=== PATIENT | female | born 1925 | race Caucasian/White ===

== ENCOUNTER 2016-08-06 03:50 | Inpatient (IN) | payer SELFPAY ==
[~2016-08-06] VITALS: Ht 167.6 cm; Wt 59.0 kg
--- NOTE | 2016-08-06 03:57 | NUR ---
PT BIB FAMILY, PLACED ON GURNEY AND BROUGHT INTO ROOM. PT CRYING OUT IN PAIN WITH MOVEMENT TO HER HIP/BACK PAIN S/P FALL EARLIER IN THE AFTERNOON. DR ESQUIVEL AT BEDSIDE. SONS AT BEDSIDE.
[2016-08-06 04:16] LABS: BASOPHIL % 0.4 % (0-2); PLATELET COUNT 253 x10^3mcL (130-400)
[2016-08-06 04:25] LABS: RED CELL DISTRIBUTION WIDTH 14.6 % (11.5-14.5)
[2016-08-06 04:27] LABS: CALCIUM 8.7 mg/dL (8.5-10.1); CARBON DIOXIDE 24.2 mmol/L (21-32); CHLORIDE SERUM 105 mmol/L (98-107); CREATININE SERUM 1.8 mg/dL (0.6-1.0); GLUCOSE SERUM 112 mg/dL (74-106); POTASSIUM SERUM 4.1 mmol/L (3.5-5.1); SODIUM SERUM 139 mmol/L (136-145)
--- NOTE | 2016-08-06 04:27 | NUR ---
XRAY AT BEDSIDE.
[2016-08-06 04:32] LABS: ALBUMIN 3.6 g/dL (3.4-5.0); ALKALINE PHOSPHATASE 56 U/L (46-116); ALT/SGPT 20 U/L (14-59); AST/SGOT 27 U/L (15-37); BILIRUBIN TOTAL 0.42 mg/dL (0.20-1.00); TOTAL PROTEIN, SERUM 7.1 g/dL (6.4-8.2)
--- NOTE | 2016-08-06 05:34 | NUR ---
REPORT GIVEN TO KP FIELDS.
[2016-08-06 05:54] LABS: RED BLOOD CELLS 2.86 M/mm3 (4.10-5.10)
[2016-08-06 06:04] VITALS: BP 128/54
[2016-08-06 06:04] LABS: CHOLESTEROL/HDL RATIO 4.5; MAGNESIUM 1.8 mg/dL (1.8-2.4); PHOSPHOROUS 3.5 mg/dL (2.5-4.9)
[2016-08-06 06:12] LABS: FREE T4 0.94 ng/dL (0.76-1.46); FREE THYROXINE INDEX 2.3 ug/dL (1.4-4.5); T4(THYROXINE) 6.5 ug/dL (4.7-13.3)
--- NOTE | 2016-08-06 06:12 | NUR ---
RECEIVED FROM ER, TRANSPORTED VIA [facility] [place]. AWAKE AND ALERT, ORIENTED X 4. SPEECH CLEAR AND APPROPRIATE. ACCOMPANIED BY HER SON. PT ADMITTED FOR LEFT HIP FRACTURE. SHE STATED SHE TRIPPED AND FELL AT HOME. SEVERE PAIN WHEN MOVED FROM [facility] [place] TO BED. DENIED HAVING PAIN WHEN AT REST OR NOT MOVED. CAPILLARY REFILL TO TOES < 3 SECS. NO OPEN SKIN BREAKDOWN NOTED, BUT UNABLE TO ASSESS BUTTOCKS OR BACK AT THIS TIME. PT REFUSED TO BE TURNED. SALINE LOCK TO RIGHT AC.
[2016-08-06 06:21] LABS: IRON 23 ug/dL (50-170); TOTAL IRON BINDING CAPACITY 235 ug/dL (250-450)
[2016-08-06 06:22] LABS: T3 TOTAL 0.96 ng/mL
--- NOTE | 2016-08-06 07:06 | NUR ---
ENDORSED TO NURSE JUAN C. PT ASLEEP, EASILY AWAKENED. STATED COMFORTABLE AT THIS TIME. ALSO ENDORSED PT'S SON SUKI REQUESTS TO SPEAK WITH ORTHOPEDIC SURGEON WHEN HE COMES.
--- NOTE | 2016-08-06 07:25 | NUR ---
RESTING IN BED, AROUSABLE TO LIGHT NOISE, ABLE TO VERBALIZE NEEDS WITH CLEAR AND COHERENT SPEECH, REPORTS HAVING A FALL "YESTERDAY AT 1300" LLE WITH PAIN 5/10, WORSE WITH MOVEMENT, NUMBNESS AND TINGLING FELT AT HER LEFT FOOT, NO SENSATION LOSE, ABLE TO WIGGLE TOES, CAP REFILL < 3SECONDS, PULSES ARE MODERATE AND PALPABLE, ON TELE #16 NSR ON MONITOR, DENIES ANY HEART RELATED PAIN OR DISCOMFORT, IV AT RAC INFUSING NS AT 100ML/HR, REORIENTED TO ROOM AND CALL LIGHT, WILL CONTINUE TO PROVIDE CARE AND ADMINISTER PAIN MED ORDERED.
--- NOTE | 2016-08-06 08:10 | NUR ---
DR GATICA AND DR SHELBY AT BEDSIDE TO PLACE BILL'S TRACTION, PT C/O LLE PAIN 09/21, PAIN IS IMPROVING AFTER DOSE OF MORPHINE, BUT VERY RELACTANT TO THE PROCEDURE, DR DENSON MADE AWARE AND WILL ORDER DILAUDED TO BE GIVEN BEFORE THE PROCEDURE.
[2016-08-06 11:06] VITALS: BP 128/54
[2016-08-06 11:07] VITALS: BP 103/43
--- NOTE | 2016-08-06 11:10 | NUR ---
ECHO COMPLETED REQUESTED FOR POSS PRE-OP IM AM
--- NOTE | 2016-08-06 11:34 | NUR ---
BUCKS TRACTION WITH 5LBS APPLIED BY DR DENSON, PT TOLERATED WITH MIN DISTRESS, C/O FEELING NAUSEUS, WILL ADMIN ANTIEMETIC ORDERED.
--- NOTE | 2016-08-06 12:44 | NUR ---
16Fr BETANCUR CATH PLACED, 675ML OF CLEAR YELLOW URINE OUT, DRAINING TO GRAVITY, PATIENT TOLERATED WITH MIN DISTRESS, CALL LIGHT WITHIN REACH, ASSISTED TO COMFORTABLE POSITION FOR LUNCH.
[2016-08-06 13:23] VITALS: BP 88/38
--- NOTE | 2016-08-06 13:34 | NUR ---
COMPOUND FINISHER REPORTS BP 88/37, ON RUE, UPON REASSESSMENT BP 88/38 MAP 53, HR 53, PATIENT IS AWAKE AND ALERT, C/O NAUSEUS AND "SLIGHTLY DIZZY", DR DENSON AT BEDSIDE TO EVAL, WILL F/U WITH NEW ORDERS.
--- NOTE | 2016-08-06 13:36 | NUR ---
250ML NS BOLUS STARTED, PT C/O HAVING PEPTIC ULCER, DR DENSON MADE AWARE.
[2016-08-06 18:16] VITALS: BP 96/45
--- NOTE | 2016-08-06 19:37 | NUR ---
SHIFT REASSESSMENT DONE.PATIENT ASLEEP,NOT DISTURBED,BREATHING EASY.PATIENT MAINLY HEBREW,NEEDS ANTICIPATED.O2 AT 2 LITERS.BUCKS TRACTION 5 LBS,LEFT EXT.NS AT 50 CC/ HOUR.IV SITE GOOD RAC.TELE 16 SR.HAD BM TODAY PER DAY SHIFT.SKIN INTACT.LLE EDEMA NOTED.HAS BETANCUR CATH PUT IN TODAY FROM PREVIOUS SHIFT.PAIN MED PRN.CALL LITE IN REACH FOR ASSISTANCE.
--- NOTE | 2016-08-06 19:38 | NUR ---
1630: BOLUS OF NS 500ML ORDERED AND ADMINISTERED FOR BP 83/35. 1730: BP IS NOW 95/48, PT DENIES ANY MALIK OR DIZZINESS, LLE PAIN 04/21.
--- NOTE | 2016-08-06 19:40 | NUR ---
SITTING UP IN BED, BUCKS TRACTION IN PLACE, PT ABLE TO TOLERATE DINNER, REPORTS PAIN AT 3/10, WORSE WITH MOVEMENT, WILL HAVE ORIF ON 08/07/[address] DILLARD, CONSENTS SIGNED, CHECK LIST TO BE COMPLETED, NO OTHER SIGNIFICANT CHANGES NOTED, CARE ENDORSED TO NIGHT NURSE. DAUGHTER JEFF PHONED, ALL QUESTIONS ANSWERED.
--- NOTE | 2016-08-06 20:59 | NUR ---
SON HERE TALKING TO DR SHELBY.HAS FX L HIP.SURGERY TOMORROW,CONSENT ALREADY SIGNED BY PATIENT FROM PREVIOUS SHIFT.QUESTIONS ANSWERED BY DR SHELBY,SON AT BEDSIDE.
[2016-08-06 22:15] VITALS: BP 80/50
--- NOTE | 2016-08-06 22:20 | NUR ---
BP 80/50 NO SYMPTOMS,DR SHELBY MADE AWARE.SAYS TO DO BOLUS 500 AT THIS TIME,PATIENT HAS NO CHF.BETANCUR INTACT.
--- NOTE | 2016-08-06 22:25 | NUR ---
500 BOLUS ON AT THIS TIME PER DR SHELBY.
--- NOTE | 2016-08-06 22:30 | NUR ---
DR GATICA AT BEDSIDE,TALKING TO PATIENT,CHECKING BP AT THIS TIME.PATIENT IS ON NORCO RTC FOR PAIN.
[2016-08-07] VITALS (10 sets, daily range): BP systolic 80–107; BP diastolic 30–50
[2016-08-07 00:04] LABS: microscopic required? YES; urine erythrocyte TRACE (NEGATIVE)
--- NOTE | 2016-08-07 00:41 | NUR ---
BP AT MIDNITE 80/43 MAP OF 53.CAHARGE NURSE AWARE.PATIENT HAS NO SYMPTOMS PRESENTED.DR GATICA AWARE.
[2016-08-07 00:42] LABS: AMPHETAMINE QUAL UR NONE DETECTED (NEG <=1000)
--- NOTE | 2016-08-07 00:43 | NUR ---
DR SHELYB AND DR GATICA AWARE.
--- NOTE | 2016-08-07 01:11 | NUR ---
NEW ORDER ROCEPHIN NOTED AND GIVEN,FOLLOWED WITH I LITER BOLUS FOR LOW BP.
--- NOTE | 2016-08-07 02:36 | NUR ---
1 LITER BOLUS CONSUMED,LATEST BP NOW 81/30 MAP OF 47.PATIENT HAS NO SYMPTOMS,EASILY AWAKENED.CHARGE NURSE AWARE.DR SHELBY AWARE AT THIS TIME.NS AT 50 CC/ HOUR RESUMED.
--- NOTE | 2016-08-07 02:45 | NUR ---
DR SHELBY DC [facility].NOW PRN.
--- NOTE | 2016-08-07 02:46 | NUR ---
DR SHELBY AT BEDSIDE,TALKING TO PATIENT,NO SYMPTOMS.ALSO DR GATICA AT BEDSIDE,CHECKING BP.PERIANESTHESIA RN USE,MAILY GREENLANDIC.
--- NOTE | 2016-08-07 02:58 | NUR ---
BP RECHECKED WITH SMALL CUFF 105/58 MAP OF 74.DR SHELBY AND DR GATICA DOUBLE CHECKED BP.
--- NOTE | 2016-08-07 03:21 | NUR ---
ITCHINESS NOTED,DEIRDRE ORDERED,STILL UNVERIFIED,SAYS SHE DID NOT HAVE A SHOWER YESTERDAY,ROCEPHIN WAS GIVEN EARLIER,AFSANEH THINKS IT FROM IT,NO SKIN REDNEE NOTED.
--- NOTE | 2016-08-07 03:23 | NUR ---
CHANO ARTEAGA.NOW NEW ATB,LAVINIA.
--- NOTE | 2016-08-07 06:07 | NUR ---
PATIENT BP REMAINS LOW 80/37 MAP 52.CHARGE NURSE AWARE.DR SHELBY MADE AWARE AT ONCE.
[2016-08-07 06:14] LABS: BASOPHIL % 0.6 % (0-2); PLATELET COUNT 158 x10^3mcL (130-400)
[2016-08-07 06:21] LABS: CALCIUM 7.5 mg/dL (8.5-10.1); CARBON DIOXIDE 22.4 mmol/L (21-32); CHLORIDE SERUM 110 mmol/L (98-107); CREATININE SERUM 1.5 mg/dL (0.6-1.0); GLUCOSE SERUM 84 mg/dL (74-106); MAGNESIUM 1.8 mg/dL (1.8-2.4); PHOSPHOROUS 5.1 mg/dL (2.5-4.9); POTASSIUM SERUM 4.2 mmol/L (3.5-5.1); SODIUM SERUM 142 mmol/L (136-145)
--- NOTE | 2016-08-07 06:26 | NUR ---
REPOSITIONED,CORRECT BODY ALIGNMENT MAINTAINED,BUCKS TRACTION L LEG.JUDY BATH REMINDED FILM PROCESSOR TO DO THIS AM.CHECKLIST ,CONSENT IN CHART.
--- NOTE | 2016-08-07 06:49 | NUR ---
LATEST HBG 6.6,HCT 20.DR SHELBY AWARE AT THIS TIME,WAS TALKING TO HUMA,CHARGE NURSE.PHILIPPE PACHECO THE IV.WILL FOLLOW UP ORDER.
--- NOTE | 2016-08-07 07:50 | NUR ---
RECEIVED AWAKE AND ALERT. NO ACUTE RESP. DISTRESS NOTED. BP LOW THIS AM 80/37. PT ASYMPTOMATIC. MD AWARE PER NOC SHIFT REPORT. IVF INFUSING TO KVO AND SITE CLEAR. CALL LIGHT WITHIN REACH, WILL CONTINUE W/PLAN OF CARE.
[2016-08-07 08:43] LABS: BILIRUBIN DIRECT 0.1 mg/dL (0.0-0.2); BILIRUBIN TOTAL 0.2 mg/dL (0.20-1.00)
[2016-08-07 08:44] LABS: ALBUMIN 2.4 g/dL (3.4-5.0); TOTAL PROTEIN, SERUM 5.2 g/dL (6.4-8.2)
--- NOTE | 2016-08-07 09:32 | NUR ---
BLOOD TRANSFUSION STARTED, 1ST UNIT PRBC STARTED AND INFUSING WELL.M T TOLERATING WELL, NO ACTIVE REACTION NOTED. NO CHNAGES IN VS. WILL CONTINUE TO MONITOR.
[2016-08-07 10:02] LABS: rbc morphology (normal/abnorm) ABNORMAL (NORMAL)
--- NOTE | 2016-08-07 11:57 | NUR ---
1ST UNIT PRBC COMPLETED, PT TOLERATED WELL NO ACTIVE REACTION NOTED. PT C/O LT HIP PAIN, MEDICATED WITH TORADOL IVP.WILL CONTINUE TO MONITOR.
--- NOTE | 2016-08-07 13:22 | NUR ---
PT LEFT TO O.R IN NO DISTRESS, SECOND UNIT OF PRBC INFUSING WELL, NO REACTION NOTED. FAMILY AT BEDSIDE.
--- NOTE | 2016-08-07 17:45 | NUR ---
PT BACK FROM OR AWAKE AND ALERT, IN NO ACUTE RESP. DISTRESS. VS WNL. INCISION SITE WITH DRESSING X2 INTACT. PT C/O MILD DISCOMFORT WHEN MOVING HER LEG. WILL MEDICATE INDICATED.
--- NOTE | 2016-08-07 19:08 | NUR ---
REMAINS IN NO DISTRESS. AWAKE AND ALERT. TOLERATED WELL WITH MEALS. NO C/O N/V AT THIS TIME. NO C/O PAIN. FAMILY AT BEDSIDE. NO ACTIVE REACTION TO BLOOD TRANSFUSION NOTED. CALL LIGHT WITHIN REACH. WILL BE ENDORSED TO INCOMING SHIFT.
--- NOTE | 2016-08-07 20:00 | NUR ---
RECEIVED PT RESTING IN BED AWAKE, ALERT ORIENTED X4. PT IS S/P ORIF TO LEFT HIP, SITE IS INTACT, NO DRAINAGE NOTED TO DRESSING. TELE MONITOR REMOVED, NO LONGER NEEDED, MEDSURG PT. LUNG SOUNDS CLEAR, LEFT SIDE SLIGHT CRACKLES NOTED AFTER BREATHING TREATMENT. LOG ROLL ONLY. IVF NS AT 10ML/HR. SHIFT ASSESSMENT COMPLETED. CALL LIGHT WITHIN REACH. WILL CONTINUE TO MONITOR CLOSELY.
--- NOTE | 2016-08-07 22:30 | NUR ---
ALL DUE MEDS GIVEN ORDERED. CALL LIGHT WITHIN REACH. PT RESTING IN BED NO DISTRESS NOTED. H/H COMPLETED, WNL. WILL CONTINUE TO MONITOR CLOSELY.
[2016-08-07 22:37] LABS: BASOPHIL % 0.6 % (0-2); PLATELET COUNT 155 x10^3mcL (130-400)
[2016-08-07 22:40] LABS: RED CELL DISTRIBUTION WIDTH 15.1 % (11.5-14.5)
--- NOTE | 2016-08-08 | NUR ---
PT C/O PAIN TO LEFT HIP, NORCO GIVEN ORDERED. ALL NEEDS TENDED TO. WILL CONTINUE TO MONITOR CLOSELY.
--- NOTE | 2016-08-08 04:30 | NUR ---
PT C/O PAIN, MEDICATED WITH NORCO ORDERED. IVF TKO. ALL NEEDS TENDED TO. WILL CONTINUE TO MONITOR CLOSELY.
[2016-08-08 05:26] VITALS: BP 102/46
--- NOTE | 2016-08-08 06:15 | NUR ---
ALL DUE MEDS GIVEN ORDERED. ANCEF INFUSING WELL AT THIS TIME. CALL LIGHT WTIHIN REACH. BED IS IN LOWEST POSITION. ALL NEEDS TENDED TO. WILL ENDORSE TO INCOMING SHIFT.
[2016-08-08 06:33] LABS: CALCIUM 7.6 mg/dL (8.5-10.1); CARBON DIOXIDE 22.9 mmol/L (21-32); CHLORIDE SERUM 109 mmol/L (98-107); CREATININE SERUM 1.5 mg/dL (0.6-1.0); GLUCOSE SERUM 89 mg/dL (74-106); MAGNESIUM 1.6 mg/dL (1.8-2.4); PHOSPHOROUS 4.5 mg/dL (2.5-4.9); POTASSIUM SERUM 5.2 mmol/L (3.5-5.1); SODIUM SERUM 140 mmol/L (136-145)
--- NOTE | 2016-08-08 08:00 | NUR ---
AWAKE,ALERT AND ORIENTED,VERY ANXIOUS REG. HER MEDICAL CONDITION ,S/P LEFT HIP ORIF W/ DRESSING CDI,ON ROUTINE PAIN MEDICATION GIVEN ORDERED. BETANCUR CTAH. PATENT AND DRAINING YELLOW COLOR URINE.NO ACUTE DISTRESS NOTED.ABLE TO TURN, LOG ROLL W/ ASSIST.MADE PT. COMFORTABLE IN BED. CONT. IV FLUIDS AND IV ANTIBIOTIC ORDERED.WILL CONT. PLAN OF CARE.
--- NOTE | 2016-08-08 08:45 | NUR ---
DR. NOONAN WAS HERE W/ OTHE MEDICAL STAFF MADE ROUNDS AND UPDATED PT. PLAN OF CARE.
--- NOTE | 2016-08-08 14:18 | NUR ---
PHYSICAL THERAPY DAILY NOTES CO-SIGN All documentation done by the Portable Machine Cutter for 08/08/16 has been reviewed. I agree with the documentation. Reviewed/Co-Signed by: Hailey Sequeira PT Documentation Done by:CHAD ELDER INSTITUTIONAL COOK PROGRESS TANYA.; CALLED Pt's SON (SUKI CRISTINA) CELL PHONE #, TO SCHEDULE ONGOING FAMILY TRAINING, SON WILL CHECK FROM HIS WORK WHEN HE IS AVAILABLE; SON TO CALL BACK P.T. DEPT.
[2016-08-08 18:15] VITALS: BP 130/58
--- NOTE | 2016-08-08 20:00 | NUR ---
PT A/A/O X4. DENIES DIZZINESS AND HEADACHE. BREATH SOUNDS CLEAR. BREATHING EVEN AND UNLABORED ON 2L NC. DENIES CHEST PAIN AND PRESSURE. BOWEL SOUNDS ACTIVE. NO C/O N/V AND ABD PAIN. DRESSING NOTED ON THE LEFT LOWER HIP EXTENDING TO THE LEFT THIGH C/D/I. IV INTACT ON THE LEFT FOREARM INFUSING WITH NS AT 10 ML/HR. IV HEPLOCK NOTED ON THE RIGHT FOREARM. MADE PT COMFORTABLE. PLACED CALL LIGHT WITH IN REACH. WILL CONTINUE TO MONITOR.
[2016-08-08 22:53] VITALS: BP 92/36
[2016-08-08 23:08] VITALS: BP 95/45
--- NOTE | 2016-08-08 23:10 | NUR ---
PATIENTS BLOOD PRESSURE PER OPERATIONS RESEARCH ANALYST WAS 92/36 MAP 56[address] PT [address]IC. DR. GATICA NOTIFIED. PER DR. GATICA WAS INSTRUCTED TO USE THE SMALLEST BP CUFF FOR THE PT. TOOK BP WITH SMALL CUFF, 95/[address] GATICA NOTIFIED. NO NEW ORDER GIVEN. WILL CONTINUE TO MONITOR.
--- NOTE | 2016-08-09 04:55 | NUR ---
PT REFUSED NORCO PO. DR. GATICA AWARE. WILL CONTINUE TO MONITOR.
--- NOTE | 2016-08-09 05:38 | NUR ---
PT RESTING WITH EYES CLOSED. EASILY AROUSABLE WITH VERBAL STIMULI. NO C/O PAIN THUS FAR. DRESSING ON THE LEFT LOWER HIP C/D/I. IV INTACT AND INFUSING ORDERED. MADE PT COMFORTABLE. WILL ENDORSE TO THE AM NURSE ACCORDINGLY.
[2016-08-09 06:13] VITALS: BP 133/67
--- NOTE | 2016-08-09 06:13 | NUR ---
PT TEMP 100.1. COOLING MEASURES IMPLEMENTED. GAVE PT ICE PACK FOR BOTH ARMPITS AND LEFT PT WITH ONE BLANKET. WILL CONTINUE TO MONITOR.
--- NOTE | 2016-08-09 06:54 | NUR ---
PT TEMP 99.5. COOLING MEASURES CONTINUED. WILL ENDORSE TO THE AM NURSE ACCORDINGLY.
--- NOTE | 2016-08-09 07:50 | NUR ---
RECEIVED PT IN BED A/A/OX4 FORGETFUL. DENIES MALIK. RESP EVEN AND UNLABORED WITH DIMINISHED BS BILAT. DENIES ANY SOB/CP/PRESSURE AT THIS TIME. NOTED WITH SOME SWELLING TO LLE. PT S/P ORIF LT HIP POD2, LIMITED ROM AND PAIN TO LLE. SX DRSG IN PLACE CDI. ABD SOFT, SLIGHTLY DISTENDED WITH HYPOATIVE BS X4. C/O MILD NAUSEA WILL MEDICATE ORDERED. BETANCUR CATH TO GRAVITY WITH YELLOW URINE. PT REFUSED TO TURN FOR ASSESSMENT OF BACK. PER NOC SHIFT INTACT. CALL LIGHT INREACH ASSIST WITH REPOSITIONING Q2HRS.
--- NOTE | 2016-08-09 07:52 | NUR ---
PT C/O NAUSEA MEDICATED WITH ZOFRAN IVP ORDERED.
[2016-08-09 08:39] LABS: BASOPHIL % 0.3 % (0-2); PLATELET COUNT 165 x10^3mcL (130-400)
[2016-08-09 08:52] LABS: RED CELL DISTRIBUTION WIDTH 14.6 % (11.5-14.5)
[2016-08-09 08:57] LABS: CARBON DIOXIDE 27.2 mmol/L (21-32); CHLORIDE SERUM 102 mmol/L (98-107); CREATININE SERUM 1.4 mg/dL (0.6-1.0); GLUCOSE SERUM 93 mg/dL (74-106); MAGNESIUM 2.1 mg/dL (1.8-2.4); PHOSPHOROUS 4.2 mg/dL (2.5-4.9); POTASSIUM SERUM 5.1 mmol/L (3.5-5.1); SODIUM SERUM 132 mmol/L (136-145)
[2016-08-09 09:56] VITALS: BP 133/67
[2016-08-09 09:58] VITALS: BP 122/49
--- NOTE | 2016-08-09 10:53 | NUR ---
PT C/O PAIN 07/22 MEDICATED WITH TORADOL IVP ORDERED. WILL CONT TO MONITOR.
--- NOTE | 2016-08-09 12:00 | NUR ---
PT PLACED ON LOW AIRLOSS MATRESS WHILE UP WITH PT PER NIECY SCALE. WILL CONT TO MONITOR.
--- NOTE | 2016-08-09 12:15 | NUR ---
PT C/O NAUSEA NOTED WITH MILD EMESIS MEDICATED WITH ZOFRAN IVP ORDERED. WILL CONT TO MONITOR.
[2016-08-09 13:44] VITALS: BP 99/50
--- NOTE | 2016-08-09 14:15 | NUR ---
DR. DENSON CALLED AND MADE AWARE PT REMAINS NAUSEOUS WITH SEVERAL EMESIS ABOUT 300ML YELLOW BILE, CLEAR VOMIT. MADE AWARE OF VS, 141/58, HR 74. STATED HE WILL ORDER BENDRYL IVP. WILL CONT TO MONITOR.
--- NOTE | 2016-08-09 14:20 | NUR ---
PT MADE AWARE OF NEW ORDER FOR BENADRYL TO HELP WITH NAUSEA, PT STATED SHE DID NOT WANT TO TAKE ANY OTEHR MEDICATIONS AT THIS TIME AND WANTED TO TRY TO JUST SLEEP IT OFF. WILL CONT TO MONITOR.
--- NOTE | 2016-08-09 15:25 | NUR ---
PT NOTES P.M. PATIENT SEEN IN THE AFTERNOON (1355) FOR P.T. TX. HOWEVER HELD TX D/T PATIENT NAUSEOUS. ADDITIONALLY, PER DIAMOND MAGANA PATIENT STATES "THAT SHE FEELS UPSIDE DOWN." DIAMOND MAGANA IS BY BEDSIDE & ASSISTING W/ PATIENT. RN ALSO STATED TO HOLD TX. WILL FOLLOW UP AT NEXT VISIT. PATIENT EDUCATED ON HEP & IMPORTANCE OF THERAPY. PRIMARY THERAPIST AWARE. PVE
--- NOTE | 2016-08-09 15:58 | NUR ---
PHYSICAL THERAPY DAILY NOTES CO-SIGN All documentation done by the Rv Technician for 08/09/16 has been reviewed. I agree with the documentation. I CONCUR WITH AM/FLASK FITTER NOTE; CONT PER TX PLAN Reviewed/Co-Signed by: Maryanne Dennis V PT Documentation Done by: CHAD ELDER FLASK FITTER
--- NOTE | 2016-08-09 16:10 | NUR ---
PT RESTING WITH EYES CLOSED, NO APPARENT DISTRESS, RESP EVEN AND UNLABORED. WILL CONT TO MONITOR.
[2016-08-09 17:55] VITALS: BP 133/55
--- NOTE | 2016-08-09 18:34 | NUR ---
PT RESTING COMFORTABLY AT THIS TIME EATING DINNER WITH SON AT BEDSIDE. SPOKE WITH SON REGARDING NEED FOR TRAINING WITH PT PART OF D/C PLAN. SON SUKI STATED HE WILL BE HERE AT 3PM TOMORROW TO WORK WITH PT. FILOMENA FROM CASE MANAGEMENT CALL SON AT THIS TIME, PHONE GIVEN TO SON TO SPEAK WITH FILOMENA. WILL CONT TO MONITOR.
--- NOTE | 2016-08-09 20:00 | NUR ---
PT A/A/O X4. DENIES DIZZINESS AND HEADACHE. BREATH SOUNDS CLEAR. BREATHING EVEN AND UNLABORED ON 1L NC WITH HUMIDIFIER. DENIES CHEST PAIN AND PRESSURE. BOWEL SOUNDS ACTIVE. NO C/O N/V AND ABD PAIN THUS FAR. DRESSING C/D/I ON THE LEFT LOWER HIP AND THIGH. ON BETANCUR CATH IN PLACE AND DRAINING TO GRAVITY WITH YELLOW URINE. IV HEPLOCK INTACT ON THE RIGHT FOREARM AND IV INFUSING WITH NS AT 10 ML/HR ON THE LEFT FOREARM. MADE PT COMFORTABLE. PLACED CALL LIGHT WITH IN REACH. WILL CONTINUE TO MONITOR.
[2016-08-09 21:30] VITALS: BP 125/52
--- NOTE | 2016-08-09 22:52 | NUR ---
PATIENTS BETANCUR CLAMP TO START BLADDER TRAINING. WILL CONTINUE TO MONITOR.
--- NOTE | 2016-08-10 03:05 | NUR ---
PT BETANCUR CATH UNCLAMPED. PT TOLERATED IT WELL. WILL CONTINUE TO MONITOR.
--- NOTE | 2016-08-10 05:12 | NUR ---
PT BETANCUR CATH REMOVED. PT TOLERATED IT WELL. IV INTACT AND INFUSING ORDERED. DRESSING ON THE LEFT LOWER HIP C/D/I. MADE PT COMFORTABLE. WILL ENDORSE TO THE AM NURSE ACCORDINGLY.
[2016-08-10 06:10] VITALS: BP 124/48
[2016-08-10 06:40] LABS: CALCIUM 8.3 mg/dL (8.5-10.1); CARBON DIOXIDE 27.3 mmol/L (21-32); CHLORIDE SERUM 101 mmol/L (98-107); CREATININE SERUM 1.3 mg/dL (0.6-1.0); GLUCOSE SERUM 84 mg/dL (74-106); MAGNESIUM 2.1 mg/dL (1.8-2.4); PHOSPHOROUS 4.3 mg/dL (2.5-4.9); POTASSIUM SERUM 4.6 mmol/L (3.5-5.1); SODIUM SERUM 133 mmol/L (136-145)
[2016-08-10 06:50] LABS: BASOPHIL % 0.6 % (0-2); PLATELET COUNT 173 x10^3mcL (130-400); RED CELL DISTRIBUTION WIDTH 14.5 % (11.5-14.5)
--- NOTE | 2016-08-10 07:40 | NUR ---
RECEIVED PT IN BED A/A/OX4 DENIES MALIK. RESP EVEN AND UNLABORED WITH SLIGHTLY DIMINISHED BASES. ON O2 AT 1L/MIN VIA NC, REFUSED RT PROTOCOL. DENIES ANY CP/PRESSURE AT THIS TIME. NSR ON TELE. NOTED WITH SWELLING TO LLE AT SX SITE. S/P ORIF TO LT HIP POD3. SX DRSG CDI. ABD SOFT, SLIGHTLY DISTENDED PT DENIES HAVING ANY BM YET, LAST BM /SUNDAY LAST WEEK. PT NOTED WITH PRESENT BS X4. C/O MILD NAUSEA. BETANCUR CATH D/C'D THIS AM PT YET TO VOID. PT WITH LIMITED ROM TO LLE, UP WITH PT. ON LOW AIRLOSS MATTRESS, SKIN INTACT, SOME ECCHYMOSIS TO BUE. CALL LIGHT IN REACH NEEDS ATTENDED.
--- NOTE | 2016-08-10 08:20 | NUR ---
DR. NOONAN AND MEDICAL TEAM AT BEDSIDE OF AM ROUNDS UPDATED ON PT'S CONDITION OVERNIGHT. MADE AWARE PT REMAINS NAUSEOUS AND HAS NOT HAD BM. MD INFORMED PT OF PLAN TO MAKE SOME CHANGES TO MEDICAITONS TO HELP WITH SIMPTOMS. PT AGREABLE WITH POC.
--- NOTE | 2016-08-10 08:40 | NUR ---
PT C/O NAUSEA MEDICATED WITH ZOFRAN IVP ORDERED WILL CONT TO MONITOR.
--- NOTE | 2016-08-10 09:10 | NUR ---
PT C/O DIZZINESS AND LIGHT HEADEDNESS, BELIEVE EFFECT OF ZOFRAN, REQUESTED MEDICATION NOT BE GIVEN ANYMORE. MESSAGE SENT VIA PAGE GATE TO DR. DENSON.
--- NOTE | 2016-08-10 09:30 | NUR ---
PT HAD FIRST POST F/C D/C VOID, ABOUT 200ML.
[2016-08-10 09:49] VITALS: BP 93/63
--- NOTE | 2016-08-10 11:00 | NUR ---
UNABLE TO GIVE MG CITRATE AT ORDERED TIME D/T C/O NAUSEA. PT ALLOW TO HAVE FLEET ENEMA GIVEN AT THIS TIME. CURRENTLY RETAINING IT. WILL CONT TO MONITOR.
--- NOTE | 2016-08-10 11:20 | NUR ---
PT HAD LARGE SOFT, BROWN BM AT THIS TIME, REPORTS STILL FEELING URGE TO HAVE BM PROVIDED WITH LOW BEDPAN. CALL LIGHT IN REACH NEEDS ATTENDED TO.
--- NOTE | 2016-08-10 12:15 | NUR ---
DR. DENSON CALL AND MADE AWARE PT C/O CHEST PAIN/SOB WHILE WORKING WITH PT. PT HAD O2 SAT DROP TO 85%, PT WAS NOTED TO HOLD BREATH AND STRAIN WHILE ATTEMPTING TO STAND AND USE BATHROOM. PT WAS PLACED ON O2 AT 2L/MIN VIA NC BY PT WITH O2SAT UP TO 98%. PT REPORT PAIN TO CHEST WITH TOUCH AND DEEP BREATHING. VSS, PER TELE MONITOR NO CHANGE IN RHYTHM WITH IN LAST [address] DENSON MADE AWARE AND CAME TO BEDSIDE TO EVAL PT. EVALUATED PT AND INSTRUCTED PT TO RESUME BREATHING TX AND TAKE LAXITIVES TO HELP RELIEVE NAUSEA THAT MAY BE CAUSE BY CONSTIPATION. PT AGREABLE TO ALL OF PHYSICIAN INSTRUCTIONS AND AGREED TO TAKE MAG CITRATE PREVIOUSLY REFUSED. PHARMACY CALL TO REACTIVATE MEDICATION. WILL CONT TO MONITOR.
--- NOTE | 2016-08-10 13:30 | NUR ---
PERFORMED WOUND CARE TO LT HIP SX SITE ORDERED. NOTED SMALL OPEN BLISTER TO LT HIP POSTERIOR AREA AFTER REMOVING SX TAPE. APPLYED ISLAND DRSG. OBTAINED PICTURE OF ALL SKIN ABNORMALITIES. WILL CONT TO MONITOR.
[2016-08-10 13:54] VITALS: BP 120/48
--- NOTE | 2016-08-10 14:34 | NUR ---
PHYSICAL THERAPY DAILY NOTES CO-SIGN All documentation done by the Gasser Machine Operator for 08/10/16 has been reviewed. I agree with the documentation. Reviewed/Co-Signed by: Hailey Sequeira PT Documentation Done by:CHAD ELDER PEDIATRIC NURSE PRACTITIONER POC REVIEWED W/PEDIATRIC NURSE PRACTITIONER; PROGRESS TANYA; DEMO LACK OF MOTIVATION, OCCASIONAL AGGRESSION TOWARDS P.T. STAFF; FAMILY TRNG SCHEDULED W/ SON TODAY AROUND 3PM; NURSE & CASE MGMT AWARE.
--- NOTE | 2016-08-10 15:26 | NUR ---
PT MEDICATED WITH TORADOL IVP FOR C/O PAIN AT 510 AND TO PREMEDICATED PRIOR TO WORKING WITH PT, WILL CONT TO MONITOR.
--- NOTE | 2016-08-10 15:30 | NUR ---
DAVID COHN AT BEDSIDE WORKING WITH PT. BUTT FROM CASE MANAGEMENT MADE AWARE AND SPOKE TO SON OVER PHONE TO DISCUSS D/C PLAN.
[2016-08-10 17:17] VITALS: BP 137/46
--- NOTE | 2016-08-10 18:30 | NUR ---
PT RESTING COMFORTABLY AT THIS TIME. MEDICATED WITH ROUTINE NORCO AT THIS TIME. REPORTS SOME MILD NAUSEA. SON AT BEDSIDE. CALL LIGHT IN REACH NEEDS ATTENDED TO.
--- NOTE | 2016-08-10 20:00 | NUR ---
AAO X4 VERBAL YI SPEAKING ONLY, DENIES PAIN, NO DISTRESS, 02 @ 2L/MIN NC LUNGS DIM BASES, CLEAR @ UPPER LOBES, INTACT DRESSING TO LT HIP S/P ORIF NO BLEEDING, IVF NS INFUSING @ 10CC/HR IV ACCESS LFA PATENT NON INFIL, TELE #4 INPLACED SR IN THE MONITOR NO CP OR PRESSURE, ABD SOFT NON TENDER BS ACTIVE X4 QUADRANTS NO C/O NAUSEA OR VOMITING, ATTENDED NEEDS, BEDPAN OFFERED PER REQUEST, SHIFT ASSESSMENT DONE, CALL LIGHT AT REACH CONT TO MONITOR.
--- NOTE | 2016-08-10 22:00 | NUR ---
RECEIVED A CALL FROM PHARMACIST RE DEXTRAN IV ORDER IN WHICH CLARIFIED WITH DR GATICA TO HOLD DOSE TESTING FOR TONIGHT, WILL DO IT IN AM.
[2016-08-10 22:41] VITALS: BP 113/52
--- NOTE | 2016-08-11 03:04 | NUR ---
PT ASLEEP NO S/SX OF PAIN OR DISCOMFORTS, LOG ROLL DURING REPOSITIONING AND ADL'S, SR IN THE MONITOR, CALL LIGHT AT REACH.
[2016-08-11 06:29] LABS: CALCIUM 8.1 mg/dL (8.5-10.1); CARBON DIOXIDE 24.4 mmol/L (21-32); CHLORIDE SERUM 101 mmol/L (98-107); CREATININE SERUM 1.3 mg/dL (0.6-1.0); GLUCOSE SERUM 68 mg/dL (74-106); MAGNESIUM 2.1 mg/dL (1.8-2.4); PHOSPHOROUS 3.9 mg/dL (2.5-4.9); POTASSIUM SERUM 4.8 mmol/L (3.5-5.1); SODIUM SERUM 133 mmol/L (136-145)
[2016-08-11 06:44] LABS: BASOPHIL % 0.6 % (0-2); PLATELET COUNT 180 x10^3mcL (130-400); RED CELL DISTRIBUTION WIDTH 14.2 % (11.5-14.5)
--- NOTE | 2016-08-11 06:47 | NUR ---
NOTED UPPER HIP SURGICAL INCISION WITH BLEEDING DRESSING CHANGE TO ALL SITES TANYA WELL AFTER GIVING PAIN MEDS, WILL INFORM MD RE SURGICAL INCISION STATUS WILL ENDORSE FOR F/U, CONT TO MONITOR.
[2016-08-11 06:58] VITALS: BP 144/69
--- NOTE | 2016-08-11 07:41 | NUR ---
RECEIVED PT LAYING IN BED AWAKE AND ALERT. O2 NC RUNNING AT 2L. IV SITE APPEARS PATENT AND IS INFUSING WELL. GREETED PT IN EQUATORIAL GUINEAN. PT ASKED IF I WAS A EQUATORIAL GUINEAN SPEAKER, I REPLIED THAT I KNEW A LITTLE BIT. PT WAS UPSET THAT I WAS NOT A FLUENT EQUATORIAL GUINEAN SPEAKER. ASSURED PT THAT THERE WAS RESOURCES TO COMMUNICATE AND HAVE HER NEEDS MET. PT APPEARS STAND OFF FROM COMMUNICATION WITH INJECTION MOLDING MACHINE TENDER. CALL LIGHT WITHIN REACH. BED IN LOWEST POSITION. WILL CONTINUE TO MONITOR
--- NOTE | 2016-08-11 08:30 | NUR ---
AM ROUNDS DONE. PER DR. NOONAN, PT WILL STAY TODAY FOR CONTINUED OBSERVATION. ONE TIME ORDER OF TORADOL WILL BE ORDERED FOR H/A. WILL ALSO ORDER REGLAN PRN FOR NAUSEA. PT VERY DISORGANZIED AND CONFUSED, DESPITE TALKING WITH PANAMANIAN SPEAKING STAFF. VERY ANXIOUS AND DEMANDING. WILL CONTINUE TO MONITOR
[2016-08-11 09:57] VITALS: BP 153/61
--- NOTE | 2016-08-11 12:53 | NUR ---
PT IS VERY ATTENTION SEEK, USING CALL LIGHT FREQUENTLY, BUT WHEN STAFF COMES TO ASSIST, PT IS VERY DEMANDING AND CONTINUOUSLY CHANGES HER MIND TO WHAT SHE WANTS. GERMAN SPEAKING STAFF PRESENT TO COMMUNICATE NEEDS, BUT PT STILL APPEARS TO BE DISORANIZED ASKING ABOUT THINGS UNRELATED TO THE TOPIC AT HAND. VERY DIFFICULT TO ADMINISTER MEDICATION, BECAUSE PT REFUSES THEN CHANGES HER MIND OR ASKS FOR ANOTHER MEDICATION AND SO ON AND SO FORTH.
[2016-08-11 14:43] VITALS: BP 148/63
--- NOTE | 2016-08-11 15:31 | NUR ---
PT IS CURRENTLY IN BED ASLEEP. NO APPARENT SIGNS OF ACUTE DISTRESS NOTED AT THIS TIME. IV INFUSING WELL. BED IN LOWEST POSITION. CALL LIGHT WITHIN REACH. WILL CONTINUE TO MONITOR
--- NOTE | 2016-08-11 17:22 | NUR ---
PT AWAKE AND ALERT LAYING IN BED. WAS OFFERED BEDPAN. ADJUSTED NC TO FIT PROPERLY. CALL LIGHT WITHIN REACH. BED IN LOWEST POSITION. WILL CONTINUE TO MONITOR
[2016-08-11 18:15] VITALS: BP 160/66
--- NOTE | 2016-08-11 18:50 | NUR ---
PT IS CURRENTLY SITTING UP IN BED EATING DINNER. NO APPARENT SIGNS OF ACUTE DISTRESS NOTED AT THIS TIME TIME. CALL LIGHT WITHIN REACH. BED IN LOWEST POSITION. WILL ENDORSE CARE TO ONCOMING SHIFT
--- NOTE | 2016-08-11 19:39 | NUR ---
RECEIVED PT FROM PREVIOUS SHIFT NURSE. PT AOX4. TELE #4, SR, HR 74. DENIES CP/PRESSURE. PULSES GOOD, NO EDEMA NOTED. LUNG SOUNDS DIMINISHED, ON 2L NC. DENIES SOB/ DIFFICULTY BREATHING. BOWEL SOUNDS ACTIVE. VOIDS FREELY. LLE WEAKNESS. AIR MATTRESS IN PLACE. BRUISING AND INCISION ON L. HIP. IV IN LFA, INTACT AND PATENT. BED IN LOWEST POSITION. CALL LIGHT WITHIN REACH. WILL CONTINUE TO MONITOR.
[2016-08-11 22:09] VITALS: BP 143/62
--- NOTE | 2016-08-12 02:07 | NUR ---
PT IN BED. FREQUENTLY USING CALL LIGHT TO ASK FOR ICE PACKS AND TOWELS TO PUT ALL OVER BODY. FREQUENTLY BEING REPOSITIONED. CALL LIGHT WITHIN REACH. BED IN LOWEST POSITION. WILL CONTINUE TO MONITOR.
[2016-08-12 05:59] VITALS: BP 137/69
[2016-08-12 06:51] LABS: BASOPHIL % 0.6 % (0-2); PLATELET COUNT 241 x10^3mcL (130-400)
[2016-08-12 06:55] LABS: CALCIUM 8.5 mg/dL (8.5-10.1); CARBON DIOXIDE 24.3 mmol/L (21-32); CHLORIDE SERUM 96 mmol/L (98-107); CREATININE SERUM 1.3 mg/dL (0.6-1.0); GLUCOSE SERUM 85 mg/dL (74-106); MAGNESIUM 2.1 mg/dL (1.8-2.4); PHOSPHOROUS 3.8 mg/dL (2.5-4.9); POTASSIUM SERUM 4.7 mmol/L (3.5-5.1); SODIUM SERUM 129 mmol/L (136-145)
--- NOTE | 2016-08-12 07:15 | NUR ---
PT WAS ENDORSE TO ME THIS MORNING. PT IS SLEEPING VERY COMFORTABLE. NO RESP DISTRESS NOTED OR SOB. VS STABLE. IV TO LFA INFUSING AT 10ML/HR NS . NO REDNESS OR SWELLING NOTED AT THE SITE. CALL LIGHT IN REACH. BED IN LOW POSITION. WILL CONTINUE PLAN OF CARE.
--- NOTE | 2016-08-12 10:00 | NUR ---
PT C/O LEFT LEG PAIN. MEDICATED WITH NORCO. WILL CONTINUE TO MONITOR PT PAIN.
[2016-08-12 10:15] VITALS: BP 154/60
--- NOTE | 2016-08-12 13:17 | NUR ---
PT C/O NV. MEDICATED WITH REGLAN AT 1317. WILL CONTINUE TO MONITOR PT NV. CALL LIGHT IN REACH . BED IN LOW POSITION.
[2016-08-12 13:28] VITALS: BP 155/60
--- NOTE | 2016-08-12 15:28 | NUR ---
PT IS SLEEPING VERY COMFORTABLE. NO RESP DISTRESS OR SOB NOTED. CALL LIGHT IN REACH. BED IN LOW POSITION.
--- NOTE | 2016-08-12 16:53 | NUR ---
PT ATE ONE JELLO CUP AND SOME SALTED CRACKERS. WILL CONTINUE TO MONITOR PT APPETITE. CALL LIGHT IN REACH. BED IN LOW POSITION. BED ALARM ON.
[2016-08-12 17:45] VITALS: BP 148/66
[2016-08-12 18:12] LABS: CALCIUM 8.1 mg/dL (8.5-10.1); CARBON DIOXIDE 27.4 mmol/L (21-32); CHLORIDE SERUM 97 mmol/L (98-107); CREATININE SERUM 1.1 mg/dL (0.6-1.0); GLUCOSE SERUM 110 mg/dL (74-106); POTASSIUM SERUM 5.1 mmol/L (3.5-5.1); SODIUM SERUM 129 mmol/L (136-145)
--- NOTE | 2016-08-12 18:21 | NUR ---
PHYSICAL THERAPY DAILY NOTES CO-SIGN All documentation done by the [employer] for 08/12/16 has been reviewed. I agree with the documentation. Reviewed/Co-Signed by: Rachel Castellano DPT Documentation Done by: Pranay Lopez CONTRACT ADMINISTRATION COORDINATOR Patient emily tx faily, slowly progressing towards goals. Patient demo decreased gait emily d/t nausea, progressing in transfers. Cont with PT POC as emily/safe.
[2016-08-12 18:30] LABS: OSMOLALITY SERUM 276 mOsm/kg (278-298)
--- NOTE | 2016-08-12 19:18 | NUR ---
PT IS RESTING IN BED WITH SON INLAW AT BEDSIDE. PT IS COMFORTABLE. DENIES PAIN AT THIS TIME. NO RESP DISTRESS OR SOB NOTED. PT DENIES CHEST PAIN AT THIS TIME. IV PATENT AND INFUSING . NO REDNESS OR SWELLING NOTED AT SITE.
--- NOTE | 2016-08-12 19:30 | NUR ---
WILL EDORSE PT TO INCOMING NURSE.
--- NOTE | 2016-08-12 19:49 | NUR ---
A&O X 4. BAHRAINI SPEAKING. FAMILY AT BEDSIDE. LUNG SOUNDS CLEAR BUT DIMINISHED BILATERALLY, ON NC @ 2L. RADIAL AND PEDAL PULSES PALPABLE. INCISSION TO LEFT HIP INTACT, WITH SCANT AMOUNT OF SANGUINEOUS DRAINAGE. BOWEL SOUNDS ACTIVE X 4 QUADRANTS. DENIES PAIN AT THIS TIME. NS INFUSING @ 80 ML/HR TO LEFT FA, NO REDNESS OR SWELLING. BED IN LOW POSITION, CALL LIGHT IN REACH. INSTRUCTED TO CALL FOR ASSISTANCE.
--- NOTE | 2016-08-12 19:50 | NUR ---
A&O X 4. THAI SPEAKING. FAMILY AT BEDSIDE. LUNG SOUNDS CLEAR BUT DIMINISHED BILATERALLY, ON NC @ 2L. RADIAL AND PEDAL PULSES PALPABLE. DRESSING TO LEFT HIP INTACT, WITH SCANT AMOUNT OF SANGUINEOUS DRAINAGE. BOWEL SOUNDS ACTIVE X 4 QUADRANTS. DENIES PAIN AT THIS TIME. NS INFUSING @ 80 ML/HR TO LEFT FA, NO REDNESS OR SWELLING. BED IN LOW POSITION, CALL LIGHT IN REACH. INSTRUCTED TO CALL FOR ASSISTANCE.
[2016-08-12 21:28] VITALS: BP 132/62
--- NOTE | 2016-08-13 00:45 | NUR ---
RESTING IN BED WITH EYES CLOSED. BREATHING EVEN AND UNLABORED. NO ACUTE DISTRESS NOTED. IV PATENT AND INFUSING. BED IN LOW POSITION, CALL LIGHT IN REACH. WILL CONTINUE TO MONITOR.
[2016-08-13 06:09] VITALS: BP 141/62
--- NOTE | 2016-08-13 06:34 | NUR ---
A&O X 4. BREATHING EVEN AND UNLABORED, ON NC @ 2L. NO ACUTE DISTRESS NOTED. IV PATENT AND INFUSING. BED IN LOW POSITION, CALL LIGHT IN REACH. WILL ENDORSE TO ONCOMING RN.
[2016-08-13 07:24] LABS: CALCIUM 8.1 mg/dL (8.5-10.1); CARBON DIOXIDE 26.2 mmol/L (21-32); CHLORIDE SERUM 101 mmol/L (98-107); CREATININE SERUM 1.1 mg/dL (0.6-1.0); GLUCOSE SERUM 85 mg/dL (74-106); MAGNESIUM 1.9 mg/dL (1.8-2.4); PHOSPHOROUS 3.7 mg/dL (2.5-4.9); SODIUM SERUM 133 mmol/L (136-145)
--- NOTE | 2016-08-13 07:35 | NUR ---
RECEIVED PT IN NO ACUTE DISTRESS. RESTING COMFORTABLY WITH EYES CLOSED, NO PAIN NOTED. RESP EVEN AND UNLABORED ON 2L NC. NO SOB NOTED. IVF INFUSING. DRESSING TO L HIP C/D/I. IVF INFUSING. SIDE RAILS UP X2. BED IN LOWEST POSITION, CALL LIGHT WITHIN REACH. WILL CONTINUE TO MONITOR.
[2016-08-13 08:40] VITALS: BP 121/52
[2016-08-13 09:25] LABS: BASOPHIL % 1.6 % (0-2); PLATELET COUNT 219 x10^3mcL (130-400); RED CELL DISTRIBUTION WIDTH 13.4 % (11.5-14.5)
--- NOTE | 2016-08-13 12:14 | NUR ---
PT RESTING IN BED COMFORTABLY, DENIES ANY PAIN AND SHORTNESS OF BREATH. IV FLUIDS INFUSING, BED IN LOWEST POSITION. CALL LIGHT WITHIN REACH, WILL CONTINUE TO MONITOR
[2016-08-13 14:13] VITALS: BP 121/54
--- NOTE | 2016-08-13 14:15 | NUR ---
PT'S O2 SATURATION 78% ON RA. PLACED BACK ON 5L NC IMMEDIATELY = O2 SAT 98%. NOW ON 2L NC = O2 SAT 97%. NO ACUTE RESP DISTRESS. DR. GERMAIN AND DR. TORRES AWARE. WILL CONTINUE TO MONITOR.
[2016-08-13 18:10] VITALS: BP 144/75
--- NOTE | 2016-08-13 18:15 | NUR ---
ASSISTED PT OUT OF BED AND ONTO BEDSIDE COMMODE. EATING DINNER SITTING UP. RECHECKED O2 SATURATION ON RA = 97%. NO ACUTE RESP DISTRESS AT THIS TIME. CALL LIGHT WITHIN REACH. WILL CONTINUE TO MONITOR.
--- NOTE | 2016-08-13 18:47 | NUR ---
PT SITTING ON BED SIDE COMMODE PER PT'S REQUEST. EATING DINNER. PT COMPLAINING OF NAUSEA AT THIS TIME, WILL MEDICATE ORDERED. C/O L HIP AND BACK DISCOMFORT BUT TOLERABLE AT THIS TIME. PT NOT IN ANY RESPIRATORY DISTRESS. CALL LIGHT WITHIN REACH. WILL ENDORSE ONCOMING SHIFT
--- NOTE | 2016-08-13 19:40 | NUR ---
A&O X 4. TAJIK SPEAKING. FAMILY AT BEDSIDE. LUNG SOUNDS CLEAR BUT DIMINISHED BILATERALLY, ON RA. RADIAL AND PEDAL PULSES PALPABLE. DRESSING TO LEFT HIP INTACT, WITH SCANT AMOUNT OF SANGUINEOUS DRAINAGE. BOWEL SOUNDS ACTIVE X 4 QUADRANTS. DENIES PAIN AT THIS TIME. NS INFUSING @ 30 ML/HR TO LEFT FA, NO REDNESS OR SWELLING. BED IN LOW POSITION, CALL LIGHT IN REACH. INSTRUCTED TO CALL FOR ASSISTANCE.
[2016-08-13 21:21] VITALS: BP 113/55
[2016-08-13 22:36] VITALS: Ht 167.6 cm; Wt 59.0 kg
--- NOTE | 2016-08-14 01:10 | NUR ---
RESTING IN BED WITH EYES CLOSED. BREATHING EVEN AND UNLABORED, ON NC @ 1L. NO ACUTE DISTRESS NOTED. IV PATENT AND INFUSING. BED IN LOW POSITION, CALL LIGHT IN REACH. WILL CONTINUE TO MONITOR.
[2016-08-14 05:36] VITALS: BP 127/60
--- NOTE | 2016-08-14 07:06 | NUR ---
A&O X 4. BREATHING EVEN AND UNLABORED, ON NC @ 1 L, O2 SAT 98%. IV PATENT AND INFUSING. LEFT HIP DRESSING CHANGED AND ENFORCED. SURIGCAL SITE IS WITHOUT REDNESS AND SWELLING. BRUISING IS EVIDENT TO LLE. NO ACUTE DISTRESS NOTED. WILL ENDORSE TO ONCOMING RN.
--- NOTE | 2016-08-14 09:45 | NUR ---
AT 0710 - RECEIVED PATIENT FROM NIGHT NURSE. AWAKE, ALERT AND APPEARS ORIENTED. RESPIRATIONS REGULAR. ON SUPPLIMENTAL O2 AT 2L/MIN. O2 SAT 100%. IV INFUSING NS AT 30ML/HR. DRESSING TO L HIP IS DRY AND INTACT. ON AIR MATTRESS. AT 0730 - C/O HEADACHE. MEDICATED WITH FIOROCET AND PROVIDED WITH ICE PACK TO FOREHEAD. PATIENT SAT UP IN BED AND ASSISTED WITH BREAKFAST. USING TRAPEZE TO ASSIST WITH REPOSITIONING. AT 0810 - SEEN BY DR TORRES DURING MORNING ROUNDS. SPOKE WITH PATIENT USING BENGALI INTERPRETATION. DR ANSWERED PATIENT'S QUESTIONS. ENCOURAGED TO SIT OUT OF BED IN CHAIR. AT 0910 - PATIENT STIL EATING BREAKFAST. INSTRUCTED AND ENCOURAGED IN USE OF INSENTIVE SPIROMETER.
[2016-08-14 10:00] VITALS: BP 133/76
--- NOTE | 2016-08-14 10:33 | NUR ---
PATIENT GIVEN NORCO SCHEDULED PER EMAR. PATIENT WASHED AND REPOSITIONED FOR COMFORT.
--- NOTE | 2016-08-14 11:02 | NUR ---
PHYSICAL THERAPY AT BEDSIDE AT THIS TIME.
--- NOTE | 2016-08-14 13:13 | NUR ---
PATIENT HAS BEEN SITTING IN CHAIR. APPEARED COMFORTABLE. PHYSYCAL THERAPY ASSISTING PATIENT TO BATHROOM AT THIS TIME.
[2016-08-14 14:32] VITALS: BP 133/76
--- NOTE | 2016-08-14 14:33 | NUR ---
PATIENT IS NOW BACK IN BED. MADE COMFORTABLE. VOIDED IN BATHROOM ONLY, NO BM YET. IV INFUSING NS AT 30ML/HR. ON NORCO Q 4 HR FOR PAIN SCHEDULED.
--- NOTE | 2016-08-14 16:49 | NUR ---
PHYSICAL THERAPY DAILY NOTES CO-SIGN All documentation done by the Brigadier for 08/14/16 has been reviewed. I agree with the documentation. Reviewed/Co-Signed by: Hailey Sequeira PT Documentation Done by:CHAD ELDER CUSTODIAL OFFICER POC REVIEWED W/ CUSTODIAL OFFICER; PROGRESSING W/ FUNC MOB.
[2016-08-14 17:44] VITALS: BP 133/53
--- NOTE | 2016-08-14 18:38 | NUR ---
VSS. RESPIRATIONS REGULAR. IV INFUSING NS AT 30ML/HR. PATIENT HAS BEEN COMMENCED ON CLEOCIN AND LEVAQUIN; BOTH ADMINISTERED PER EMAR. EATING WELL TODAY. VOIDING IN BEDPAN, BUT NO BM TODAY. PAIN UNDER CONTROL WITH PO NORCO SCHEDULED. WILL ENDORSE CARE TO NIGHT NURSE.
--- NOTE | 2016-08-14 19:50 | NUR ---
PT. AWAKE, ALERT, ORIENTED X4. C/O MILD HEADACHE. ICE PACK NOTED TO FOREHEAD. BREATH SOUNDS DIMINISHED BLL, RESP. EVEN, UNLABORED. DENIES SOB. PT. ON 2L/NC. DENIES CHESTPAIN. PEDAL PULSES STRONG NICHOLAS. LLE HIP W/ DSRG CDI. NO DRAINAGE NOTED. ABD. SOFT AND ROUND, BOWEL SOUNDS ACTIVE. DENIES ABD. PAIN, DENIES NAUSEA. IVF NS AT 30CC/HR. CALL LIGHT WITHIN REACH.
[2016-08-14 20:51] VITALS: BP 146/70
--- NOTE | 2016-08-14 23:58 | NUR ---
PT. C/O PAIN IN HER BODY, PAIN IN HER NECK AND SPINE. PT. HAS COLD COMPRESS TO BACK OF NECK ALREADY. PAIN LEVEL STATED 9/10. PRN TORADOL IVP GIVEN ORDERED. WILL MONITOR.
--- NOTE | 2016-08-15 03:41 | NUR ---
PT. SLEEPING AT THIS TIME. APPEARS COMFORTABLE. EYES CLOSED AND SNORING. CALL LIGHT REMAINS WITHIN REACH.
[2016-08-15 06:09] VITALS: BP 133/64
[2016-08-15 06:27] LABS: BASOPHIL % 0.2 % (0-2); PLATELET COUNT 268 x10^3mcL (130-400)
[2016-08-15 06:46] LABS: CALCIUM 8.3 mg/dL (8.5-10.1); CARBON DIOXIDE 25.9 mmol/L (21-32); CHLORIDE SERUM 98 mmol/L (98-107); CREATININE SERUM 1.5 mg/dL (0.6-1.0); GLUCOSE SERUM 134 mg/dL (74-106); RED CELL DISTRIBUTION WIDTH 15.1 % (11.5-14.5); SODIUM SERUM 129 mmol/L (136-145)
[2016-08-15 06:48] LABS: POTASSIUM SERUM 5.9 mmol/L (3.5-5.1)
--- NOTE | 2016-08-15 06:52 | NUR ---
PT. RECEIVED ROUTINE DOSE OF PAIN MEDICATION. C/O PAIN MOSTLY WHEN BEING TURNED AND REPOSITIONED. IV SITE INTACT, NS AT 30CC/HR. CALL LIGHT WITHIN REACH. WILL ENDORSE PT. CARE TO INCOMING NURSE.
--- NOTE | 2016-08-15 07:00 | NUR ---
RECEIVED PANIC VALUE OF POTASSIUM, 5.9. LABS PRINTED AND ENDORSED TO DAY CHARGE. INCOMING RN ALSO MADE AWARE.
--- NOTE | 2016-08-15 07:20 | NUR ---
PT AWAKE. FOWLERS. IV INFUSING WELL TO LFA #20 NS AT 30ML/HR. ON 2LNC WITH HUMIDIFIER. EFFORTLESS BREATHING. PT ON AIR MATTRESS. BED IN LOWEST POSITION, CALL LIGHT WITHIN REACH.
--- NOTE | 2016-08-15 09:00 | NUR ---
POTASSIUM LAB: 5.9 MEDE AY AWARE. KAYEXALATE ORDERED. KAYEXALATE ADMINISTERED PER EMAR. PT TOLERATED WELL. WILL CONTINUE TO MONITOR.
[2016-08-15 10:00] VITALS: BP 145/62
--- NOTE | 2016-08-15 10:55 | NUR ---
URINE SPECIMEN COLLECTED. SENT TO LAB.
--- NOTE | 2016-08-15 11:28 | NUR ---
DR. SANDOVAL IN TO SEE PATIENT. OXYGEN DISCONTINUED. O2SAT: 96%ON ROOM AIR AT MOMENT.
--- NOTE | 2016-08-15 13:15 | NUR ---
PT OUT OF BED TO BEDSIDE CHAIR. PT TOLERATED WELL. PROVIDE COMFORT. PT EATING LUNCH AT MOMENT. TOLERATING DIET WELL. CALL LIGHT WITHIN REACH.
[2016-08-15 16:26] LABS: CARBON DIOXIDE 24.2 mmol/L (21-32); CHLORIDE SERUM 97 mmol/L (98-107); CREATININE SERUM 1.5 mg/dL (0.6-1.0); GLUCOSE SERUM 134 mg/dL (74-106); SODIUM SERUM 130 mmol/L (136-145)
--- NOTE | 2016-08-15 18:10 | NUR ---
TRANSFERRED PT FROM BEDSIDE CHAIR TO BED. PT TOLERATED ACTIVITY WELL. PT PARTICIPATED ACTIVELY IN TRANSFER. PT REMAINS IN ROOM AIR. EFFORTLESS BREATHING, DENIES SOB. BED IN LOWEST POSITION, CALL LIGHT WITHIN REACH.
[2016-08-15 18:47] VITALS: BP 130/60
--- NOTE | 2016-08-15 19:30 | NUR ---
RECEIVED REPORT FROM DIAMOND ALCARAZ. PT SITTING IN THE COMMODE, ATTEMPTING FOR A BOWEL MOVEMENT. IN NO ACUTE DISTRESS. [place]ISH SPEAKING, DAUGHTER ON THE BEDSIDE FOR TRANSLATION. AAOX4. DENIES OF MALIK/DIZZINESS. M/S PT. DENIES OF ANY CHEST DISCOMFORT. PER PULSES MOD. TRACE EDEMA ON BLE. IN RA WITH SAT OF 97%. BREATHING EVENLY AND UNLABORED. DIM ON BLL. BS HYPOACTIVE. VOIDS FREELY WITHOUT ANY PAIN ON THE BEDPAN. PT ON AIR MARY ANNE. AMB WITH 2 PERSON ASSIST. SP ORIF ON L HIP, WITH INCISION ON L LATERAL HIP COVERED WITH DSNG THAT IS CDI. DENIES OF ANY PAIN AT THIS TIME. IV ON LFA PATENT WITH NS RUNNING AT 100CC/HR. IV ON RFA HEPLOCKED. SAFETY MEASURES ENSURED. INSTRUCTED PT AND DAUGHTER TO CALL FOR ANY NEEDS/ASSISTANCE. CALL LIGHT WITHIN REACH. WILL CONT TO MONITOR PT.
[2016-08-15 22:55] VITALS: BP 157/72
--- NOTE | 2016-08-16 | NUR ---
PT PASSED A LARGE LOOSE BM. CHANGED PT WITH CNA. Caden DARBY HIP DRESSING WAS SOILED, ALSO CLEANED AND CHANGED WITH ISLAND DRESSING. INCISION APPEARED DRY AND INTACT WITH SHILO. SAFETY MEASURES ENSURED. CALL LIGHT WITHIN REACH.
--- NOTE | 2016-08-16 05:36 | NUR ---
PT SLEPT COMFORTABLY THROUGH OUT THE NIGHT. WAS IN NO ACUTE DISTRESS. PAIN MANAGEMENT ENFORCED. HAD 2 TOTAL LOOSE LARGE BMS. MADE DR HOPKINS AWARE. SAFETY MEASURES WERE ENSURED. CALL LIGHT WITHIN REACH.
[2016-08-16 05:56] VITALS: BP 152/77
[2016-08-16 06:23] LABS: CARBON DIOXIDE 28.9 mmol/L (21-32); CHLORIDE SERUM 99 mmol/L (98-107); CREATININE SERUM 1.4 mg/dL (0.6-1.0); GLUCOSE SERUM 109 mg/dL (74-106); SODIUM SERUM 132 mmol/L (136-145)
[2016-08-16 07:03] LABS: POTASSIUM SERUM 5.7 mmol/L (3.5-5.1)
--- NOTE | 2016-08-16 07:28 | NUR ---
RECEIVED Pt. AAOX4, RESPIRATIONS EVEN AND UNLABORED. DENIES PAIN/DISCOMFORT AT THIS TIME. NO DISTRESS NOTED. LEFT HIP DSG CDI. IV AT RIGHT FOREARM SALINE LOCKED. IVF RUNNING TO IV AT LEFT FOREARM PATENT AND INTACT. BED LOW/LOCKED. CALL LIGHT IN REACH.
--- NOTE | 2016-08-16 08:25 | NUR ---
MADE ROUNDS WITH DR. NOONAN AND MEDICINE TEAM, Pt. POSSIBLE DISCHARGE TOMMORROW AND AGREED WITH PLAN OF CARE.
[2016-08-16 10:00] VITALS: BP 136/65
--- NOTE | 2016-08-16 15:00 | NUR ---
IV AT LEFT FOREARM INFILTRATED, CHECKED IV AT RIGHT FOREARM IV IS PLUGGED. IVs AT LEFT AND RIGHT FOREARM REMOVED WITH CATH INTACT. NEW IV LINE STARTED AT LEFT FOREARM 22G WITH GOOD BLOOD RETURN AND Pt. TOLERATED PROCEDURE WELL.
--- NOTE | 2016-08-16 15:16 | NUR ---
PHYSICAL THERAPY DAILY NOTES CO-SIGN All documentation done by the Cooler Tender for 08/16/16 has been reviewed. I agree with the documentation. Reviewed/Co-Signed by: Radha Sanches PT Documentation Done by: CHERISE ROWLEY SUPERVISOR FURNACE ROOM MUCH EMPHASIS ON DIAPHRAGMATIC BREATHING WITH DYNAMIC ACTIVITIES SHE TENDS TO DO VALSALVA MANEUVER, WHEN GIVEN CUES SHE DOES NOT DESATURATE, OTHERWISE PT PROGRESSIGN STEADILY
--- NOTE | 2016-08-16 17:24 | NUR ---
PHYSICAL THERAPY DAILY NOTES CO-SIGN All documentation done by the Education Reporter for 08/16/16 has been reviewed. I agree with the documentation. Reviewed/Co-Signed by: Shelly Zuluaga DPT Documentation Done by:CHERISE ROWLEY PTA I CONCUR W/DELINQUENT NOTICE MACHINE OPERATOR NOTES FOR P.M. TX. CONTINUE POC TO PATIENT TOLERANCE.
--- NOTE | 2016-08-16 18:19 | NUR ---
Pt. AAOX4, RESPIRATIONS EVEN AND UNLABORED RA. DENIES SOB/DYSPNEA NO DISTRESS NOTED. PAIN AT LLE DURING ACTIVITY DENIES PAIN/DISCOMFORT AT TIME. NORCO GIVEN SCHEDULED PER EMAR. IVF RUNNING TO IV AT LEFT UPPERARM PATENT AND INTACT. AIR MATTRESS IN PLACE. BED LOW/LOCKED. CALL LIGHT IN REACH.
--- NOTE | 2016-08-16 20:00 | NUR ---
RECEIVED PT IN BED, ALERT AND ORIENTED.MONGOLIAN SPEAKING, ABLE TO VERBALIZE NEEDS. RESP. EVEN AND UNLABORED. ON ROOM AIR, LUNGS SOUNDS CLEAR, BUT DIM. AT THE BASES. ON RT PROTOCOL. NO ACUTE DISTRESS NOTED. S/P ORIF, LT HIP DRESSING DRY AND INTACT. ABLE TO USE THE TRAPEZE AND ASSIST. FOR REPOSITIONING. ABLE TO MOVE ALL EXTS. ALL PULSES PALPABLE. NO TELE, DENIES CP OR ANY DISCOMFORT AT THIS TIME. AFEBRILE AND VITAL SIGNS STABLE. HAD X1 LG LOOSE BM,CLEANED AND KEPT COMFORTABLE. IVF, NS AT 100ML/HR, INFUSING VIA RAFY, SITE CLEAR. CALL LIGHT WITHIN REACH. WILL CONTINUE TO MONITOR.
[2016-08-16 21:48] VITALS: BP 128/58
--- NOTE | 2016-08-17 00:08 | NUR ---
02 AT SHOWS 90-91% ON ROOM AIR, PLACED ON 02 AT 2L/MIN VIA NC. NO COMPLAINTS NOTED AT THIS TIME.WILL CONTINUE TO MONITOR.
--- NOTE | 2016-08-17 02:43 | NUR ---
CHECKED AT INTERVALS,ASLEEP AT THIS TIME. NO DISTRESS NOTED. WILL CONTINUE TO MONITOR.
[2016-08-17 05:58] VITALS: BP 154/65
[2016-08-17 06:18] LABS: CALCIUM 7.5 mg/dL (8.5-10.1); CARBON DIOXIDE 25.2 mmol/L (21-32); CHLORIDE SERUM 103 mmol/L (98-107); CREATININE SERUM 1.1 mg/dL (0.6-1.0); GLUCOSE SERUM 106 mg/dL (74-106); MAGNESIUM 1.6 mg/dL (1.8-2.4); PHOSPHOROUS 4.8 mg/dL (2.5-4.9); POTASSIUM SERUM 4.7 mmol/L (3.5-5.1); SODIUM SERUM 135 mmol/L (136-145)
--- NOTE | 2016-08-17 06:40 | NUR ---
AFEBRILE AND VITAL SIGNS STABLE. RESP. EVEN AND UNLABORED. 02 AT 2L/MIN , TANYA. WELL. NO ACUTE DISTRESS NOTED.DUE MEDS GIVEN ORDERED, TANYA. WELL. IVF INTACT AND INFUSING WELL, SITE CLEAR. LT HIP DRESSING DRY AND INTACT. VOIDING FREELY VIA BEDPAN. KEPT COMFORTABLE. REPOSITIONED FOR COMFORT. WILL ENDORSE TO INCOMING NURSE.
[2016-08-17 06:58] LABS: PLATELET COUNT 291 x10^3mcL (130-400)
[2016-08-17 06:59] LABS: BASOPHIL % 0 % (0-2); RED CELL DISTRIBUTION WIDTH 15.2 % (11.5-14.5)
--- NOTE | 2016-08-17 07:05 | NUR ---
RECEIVED Pt. AAOX4, RESPIRATIONS EVEN AND UNLABORED RA. DENIES PAIN/DISCOMFORT AT THIS TIME. NO DISTRESS NOTED. IVF RUNNING TO IV AT LEFT UPPER ARM PATENT AND INTACT. LEFT HIP DSG CDI. AIR MATTRESS IN PLACE. BED LOW/LOCKED. WILL CONTINUE TO MONITOR. CALL LIGHT IN REACH.
--- NOTE | 2016-08-17 08:38 | NUR ---
MADE ROUNDS WITH DR. TORRES AND MEDICINE TEAM, DR. TORRES SPEAKING TO Pt. WITH FURRIER APPRENTICE FOR 10 MINUTES AND Pt. WAS ASYMPTOMATIC NO C/O ANY PAIN/DISCOMFORT WHEN MD STARTED TALKING ABOUT DISCHARGE Pt. STARTED C/O CHEST PAIN. CHEST PAIN IS ANXIETY RELATED PER MD. ATIVAN GIVEN WILL CONTINUE TO MONITOR.
[2016-08-17 09:30] VITALS: BP 101/59
--- NOTE | 2016-08-17 10:48 | NUR ---
MAGNESIUM LEVEL AT 1.6 DR. MACDONALD NOTIFIED.
--- NOTE | 2016-08-17 12:30 | NUR ---
DR. TORRES AND DR. GERMAIN AT BEDSIDE SPEAKING TO Pt. AND Pt. DAUGHTER.
[2016-08-17 14:12] VITALS: BP 145/75
--- NOTE | 2016-08-17 16:37 | NUR ---
PHYSICAL THERAPY DAILY NOTES CO-SIGN All documentation done by the Zigzag Tunnel Elastic Operator for 08/17/16 has been reviewed. I agree with the documentation. Reviewed/Co-Signed by: Hailey Sequeira PT Documentation Done by:CHAD ELDER SPORTS CENTRE MANAGER POC REVIEWED W/ SPORTS CENTRE MANAGER; PROGRESSING W/ FUNC MOB & GAIT ENDURANCE; FAMILY TRNG DONE TODAY (DAUGHTER & NIECE PRESENT), STAIR TRNG & SIMULATED CAR TRANSFER TRNG DONE W/ FWW.
--- NOTE | 2016-08-17 18:59 | NUR ---
Pt. AAOX4, RESPIRATIONS EVEN AND UNLABORED. MEDICATED FOR C/O ANXIETY. NO C/O PAIN/DISCOMFORT AT THIS TIME. NORCO ROUTINELY SCHEDULED. IVF RUNNING TO IV AT LEFT UPPER ARM PATENT AND INTACT. LEFT HIP DSG CHANGED, NO DRAINAGE NOTED AT SURGICAL SITE DSG CDI. BED LOW/LOCKED. CALL LIGHT IN REACH.
--- NOTE | 2016-08-17 20:00 | NUR ---
RECEIVED PT IN BED, ALERT AND ORIENTED. ABLE TO VERBALIZE NEEDS. DENIES HEADACHE/DIZZINESS. RESP. EVEN AND UNLABORED. ON ROOM AIR AT THIS TIME, SAT. 95%. REMAINS ON RT PROTOCOL. NO DISTRESS NOTED. AFEBRILE AND VITAL SIGNS STABLE. IVF, NS AT 100ML/HR, INTACT AND INFUSING VIA LT UPPER ARM,SITE CLEAR. LT HIP DRESSING DRY AND INTACT.ABLE TO MOVE EXTS. NEEDS ASSIST. WITH REPOSITIONING. ASSISTED WITH HS CARE. CALL LIGHT WITHIN REACH. WILL CONTINUE TO MONITOR.
[2016-08-17 20:35] VITALS: BP 106/43
--- NOTE | 2016-08-18 00:36 | NUR ---
NO COMPLAINTS NOTED AT THIS TIME. EYES CLOSED, APPEARS COMFORTABLE. NO DISTRESS NOTED. WILL CONTINUE TO MONITOR.
[2016-08-18 05:56] VITALS: BP 143/61
--- NOTE | 2016-08-18 06:16 | NUR ---
DUE MEDS GIVEN ORDERED, TANYA. WELL. AFEBRILE AND VITAL SIGNS STABLE. NO COMPLAINTS NOTED AT THIS TIME. IVF INTACT AND INFUSING WELL, SITE CLEAR. LT HIP DRESSING DRY AND INTACT. VOIDING FREELY VIA BEDPAN. NO SIGNIFICANT CHANGE NOTED IN PT,S CONDITION. KEPT COMFORTABLE. WILL ENDORSE TO INCOMING NURSE.
[2016-08-18 06:34] LABS: CALCIUM 7.6 mg/dL (8.5-10.1); CARBON DIOXIDE 24.6 mmol/L (21-32); CHLORIDE SERUM 104 mmol/L (98-107); CREATININE SERUM 1.2 mg/dL (0.6-1.0); GLUCOSE SERUM 103 mg/dL (74-106); MAGNESIUM 2.1 mg/dL (1.8-2.4); PHOSPHOROUS 4.7 mg/dL (2.5-4.9); POTASSIUM SERUM 4.6 mmol/L (3.5-5.1); SODIUM SERUM 136 mmol/L (136-145)
[2016-08-18 07:08] LABS: BASOPHIL % 0 % (0-2); PLATELET COUNT 360 x10^3mcL (130-400); RED CELL DISTRIBUTION WIDTH 15.8 % (11.5-14.5)
--- NOTE | 2016-08-18 07:25 | NUR ---
AAOX4 ABLE TO VERBALIZE NEEDS WITH CLEAR AND COHERENT SPEECH, LEFT HIP PAIN IS CONTROLLED AT THIS TIME, ABLE TO WIGGLE TOES, DENIES LOSS OF SENSATION, NUMBNESS OR TINGLING, ENCOURAGED TO PERFORM EXERCISES SHOWN BY PHYSICAL THERAPY, SX SITE COVERED WITH CLEAN AND DRY ISLAND DRESSING, CALL LIGHT WITHIN REACH, WILL CONTINUE TO PROVIDE CARE.
[2016-08-18 10:56] VITALS: BP 119/62
--- NOTE | 2016-08-18 11:08 | NUR ---
ASSISTED WITH REPOSITIONING, MEDICATED FOR PAIN ORDERED, DAUGHTER AT BEDSIDE, CALL LIGHT [place] REACH.
--- NOTE | 2016-08-18 13:17 | NUR ---
LATE ENTRY FOR 1110: DR TORRES, DR COBB, FIELD CONSULTANT CHINO AND PRIMARY RN AT BEDSIDE TO SPEAK WITH DAUGHTER REGARDING DISCHARGE PLANNING, DAUGHTER REQUESTING TIME TO SET UP ROOM FOR PT AT SON'S HOUSE, ALL QUESTIONS ANSWERED, DAUGHTER VERBALIZED UNDERSTANDING OF INFORMATION PRESENTED. 1230: PATIENT ABLE TO AMBULATE ABOUT 100FT WITH PHYSICAL THERAPY, O2 SATS MAINTAINED ABOVE 93% ON ROOM AIR.
--- NOTE | 2016-08-18 14:09 | NUR ---
PATIENT ABLE TO SIT IN BSC WITH ASSIST FROM PHYSICAL THERAPY, 150ML CLEAR YELLOW URINE NOTED. SHE IS NOW GOING DOWNSTAIRS VIA WHEELCHAIR TO CONTINUE WITH PHYSICAL THERAPY EXERCISES.
--- NOTE | 2016-08-18 15:54 | NUR ---
PT WAS ABLE TO WORK ON STEPS WITH PHYSICAL THERAPY, PAIN MED ADMINISTERED ORDERED, ASSISTED TO POSITION OF COMFORT, CALL LIGHT WITHIN REACH, WILL CONTINUE TO PROVIDE CARE.
--- NOTE | 2016-08-18 16:23 | NUR ---
PHYSICAL THERAPY DAILY NOTES CO-SIGN All documentation done by the Job Counselor for 08/18/16 has been reviewed. I agree with the documentation. Reviewed/Co-Signed by: Hailey Sequeira PT Documentation Done by:CHAD ELDER ASSOCIATE STORE DIRECTOR POC REVIEWED W/ ASSOCIATE STORE DIRECTOR; PROGRESSING W/ FUNC MOB & GAIT ENDURANCE; FAMILY TRNG DONE.
[2016-08-18 18:30] VITALS: BP 110/76
--- NOTE | 2016-08-18 18:53 | NUR ---
DAUGHTER AT BEDSIDE. PT WAS ABLE TO WORK WITH PHYSICAL THERAPY PLANNED, TOLERATED ALL INTERVENTIONS WITH MIN DISTRESS, EDUCATION ON IMPORTANCE OF MOBILITY REINFORCED, PAIN MANAGEMENT HAS BEEN EFFECTIVE, SX INCISION CLEAN AND DRY, NO S&S OF INFECTION NOTED OR REPORTED, PLAN TO D/C 07/20/16 IMPLEMENTED, DAUGHTER AND PATIENT VERBALIZED AGREEMENT, NO OTHER SIGNIFICANT CHANGES NOTED, WILL ENDORSE CARE TO NIGHT NURSE.
[2016-08-18 21:01] VITALS: BP 168/72
--- NOTE | 2016-08-18 21:26 | NUR ---
AWAKE, SPEAKS POLISH ONLY. DAUGHTER AT BEDSIDE TRACTOR DISTRIBUTOR. SKIN WARM AND DRY TO TOUCH, BLE WITH TRACED EDEMA , BOTH LEGS ELEVATED WITH PILLOWS FOR SUPPORT. CALL LIGHT WITHIN REACH.
--- NOTE | 2016-08-18 23:30 | NUR ---
ASSISTED WITH BEDPAN FOR BLADDER FUBNCTION. NEEDS A LOT OF ATTENTION, CITIZEN OF [place] SPEAKING ONLY. GOOD PERICARE RENDERED. PILLOWS FOR SUPPORT. KEPT CLEAN AND DRY. CALL LIGHT WITHIN REACH.
--- NOTE | 2016-08-19 00:30 | NUR ---
CONTINUES ON ATB IVPB FOR MANAGEMENT OF POSSIBLE ASPIRATION PNEUMONIA. NO ADVERSE REACTION NOTED. IV SITE INTACT AND PATENT. NO S/S OF IV INFILTRATION.
[2016-08-19 05:25] VITALS: BP 137/62
--- NOTE | 2016-08-19 05:46 | NUR ---
DUE MEDICATIONS GIVEN AND WELL TOLERATED. STILL VERY DEMANDING AND REQUIRES LOTS OF ATTENTION. ALL NEEDS ANTICIPATED/MET/ GOOD PERICARE RENDERED AFTER EACH URINATION. KEPT CLEAN AND DRY.
--- NOTE | 2016-08-19 08:00 | NUR ---
AAO TIMES 4. NO TELE. LUNGS CTA. NO SOB. O2 SAT ON 2L NC 98%. BS'S ACTIVE TIMES 4. WRAY STRONG, SHE GUARDS LEFT HIP. IV SITE LFA CDI. COOPERATIVE, CALLS FREQUENTLY. PERIPHERAL PULSES PALPABLE. NO EDEMA. MEDICAL ROUNDS PERFORMED AT [address] NOONAN AND THE MEDICINE TEAM. THE PLAN TODAY IS TO SEND HER HOME. WE WILL REMOVE THE SHILO TO HER LEFT HIP PRIOR TO DISCHARGE.
[2016-08-19 09:55] VITALS: BP 106/55
--- NOTE | 2016-08-19 14:40 | NUR ---
PHYSICAL THERAPY DAILY NOTES CO-SIGN All documentation done by the Fundraiser for 08/19/16 has been reviewed. I agree with the documentation. Reviewed/Co-Signed by: Hailey Sequeira PT Documentation Done by:CATERINA CABALLERO VOLUNTEER RECRUITMENT COORDINATOR POC REVIEWED W/ VOLUNTEER RECRUITMENT COORDINATOR; FWW DISPENSED BY CASE MGMT, ADJUSTED ACCORDINGLY; PROGRESSING W/ GAIT ENDURANCE.
--- NOTE | 2016-08-19 15:07 | NUR ---
TANYA PAREKH REMOVED THE SHILO TO LEFT HIP. PHOTO WAS TAKEN. THERE WAS A SKIN TEAR ON LEFT HIP IN THE AREA OF THE TAPED AREAS FROM HIP DRESSING. APPLIED SKIN TEAR DRESSING AND GAVE THE FAMILY 2 EXTRA ONES THAT CAN BE CHANGED EVERY 72 HOURS OR WHEN NEEDED. I APPLIED STERI STRIPS THE WOUND DID NOT COMPLETELY CLOSE.
--- NOTE | 2016-08-19 15:15 | NUR ---
DTHailee AND SON AT BEDSIDE. THEY WERE CONCERNED ABOUT THE SKIN TEAR TO HER LEFT HIP. THEY WERE ASSURED THAT IT LOOKS GOOD AND ITS ONLY A SKIN TEAR AND ITS HEALING WELL. A VERSATEL 4" DRESSING WAS APPLIED. THE SON WAS CONCERNED SHE WILL GET A BLOOD CLOT AND WAS ASKING FOR THE SIGNS AND SYMPTOMS OF BLOOD CLOTS. I STRESSED TO THEM THAT THE WAY TO PREVENT BLOOD CLOTS IS FOR HER TO ABMULATE. DR BAIN ALSO CAME IN THE ROOM TO TAKE TO THEM.
--- NOTE | 2016-08-19 15:20 | NUR ---
CLARIFICATION. LEFT HIP STAPLED WOUNDS, ONCE THE SHILO WERE REMOVED, DR PAREKH WANTED STERI STRIPS APPLIED, THERE WAS SOME GAPPING IN THE WOUND IT WASNT COMPLETELY CLOSED. THE WOUND WAS CLEANED WITH BETADINE, THEN THE SHILO WERE REMOVED AND STERI STRIPS APPLIED. THERE IS NO REDNESS, SWELLING OR PIRULENCE TO THE SURGICAL WOUNDS, THEY ARE HEALING WELL.
[2016-08-19] MEDS ORDERED: VENTOLIN H0.09 MG/A1 INH (15:58)
[2016-08-19] MEDS ORDERED: PREDNISONE5 MG PO (16:01)
[2016-08-19] MEDS ORDERED: IBUPROFEN600 MG PO (16:05)
[2016-08-19] MEDS ORDERED: FERROUS SULFAT325 M2 PO (16:06)
[2016-08-19] MEDS ORDERED: TRAMADOL HCL50 MG PO (16:08)
[2016-08-19] MEDS ORDERED: VITAMIN C100 M2 PO (16:10)
--- NOTE | 2016-08-19 16:39 | NUR ---
DR RIVERA WAS NOTIFIED THAT THE PT'S SON WAS ASKING ABOUT HOW TO KNOW IF THE PT HAS BLOOD CLOTS. I ASKED WHY HE WAS ASKING, AND HE SAID THAT THE LAST TIME HIS MOM HAD A HIP FRACTURE AND SURGERY, SHE HAD A BLOOD CLOT. I GAVE THEM EDUCATION AND TOLD THEM THAT THE BEST WAY TO PREVENT BLOOD CLOTS IS TO STAY OOB MUCH POSSIBLE, TO SIT IN CHAIR AT [facility], AND TO AMBULATE AT LEAST TWICE A DAY THROUGHT OUT THE HOUSE AND TO GET OOB TO GO TO THE BATHROOM. DR RIVERA WAS NOTIFIED, AND HE SAID SHE DOESNT HAVE A BLOOD CLOT THIS TIME, SO SHE WONT BE TREATED AND THAT SHE IS TO GET OOB MUCH POSSIBLE TO PREVENT BLOOD CLOTS. THE SON AND DTR STATED THEIR UNDERSTANDING.
[2016-08-19 16:54] VITALS: BP 106/55
--- NOTE | 2016-08-19 17:20 | NUR ---
DR RIVERA TALKED WITH THEM FOR ABOUT A 1/2 HOUR, THEY WERE VERY HAPPY WITH THE WAY HE ANSWERED ALL THEIR QUESTIONS.
--- NOTE | 2016-08-19 17:48 | NUR ---
DC'D SL ANGIO INTACT. GAVE PT AND SON AND DTR DISCHARGE INSTRUCTIONS. SON VERBALIZED "I UNDERSTAND" TO ALL INSTRUCTIONS, HE SEEMS TO BE MOST IN CHARGE. DR RIVERA GAVE VERY THOROUGH INSTRUCTIONS AND TALKED WITH THEM EXTENSIVELY, THEY ARE HAPPY WITH DR RIVERA AND THE TIME HE SPENT WITH THEM. THEY FEEL COMFORTABLE TO WHAT TO DO AFTER DR RIVERA SPOKE WITH THEM.
== END 2016-08-19 18:07 | disposition home or self-care (01) | DRG 480 ==
LOC: ED 03:50 → DU 05:01 → MU 08-14 07:20
PROVIDERS: Emergency Medicine; Family Medicine; Neuromusculoskeletal Medicine, Sports Medicine; Pediatrics; ADMIT Family Medicine
PROC: 30233N1 Transfusion of Nonautologous Red Blood Cells into Peripheral Vein, Percutaneous Approach (ICD-10-PCS; 2016-08-07)
PROC: 0QS704Z Reposition Left Upper Femur with Internal Fixation Device, Open Approach (ICD-10-PCS; principal; 2016-08-07 13:30)
DX: M80.852A Other osteoporosis with current pathological fracture, left femur, initial encounter for fracture (principal); N17.0 Acute kidney failure with tubular necrosis; J69.0 Pneumonitis due to inhalation of food and vomit; E43 Unspecified severe protein-calorie malnutrition; J98.11 Atelectasis; E02 Subclinical iodine-deficiency hypothyroidism; M94.0 Chondrocostal junction syndrome [Tietze]; J43.9 Emphysema, unspecified; M19.90 Unspecified osteoarthritis, unspecified site; D50.9 Iron deficiency anemia, unspecified; Z91.81 History of falling; Z87.891 Personal history of nicotine dependence; Z88.8 Allergy status to other drugs, medicaments and biological substances; H26.9 Unspecified cataract; M99.09 Segmental and somatic dysfunction of abdomen and other regions; Z68.21 Body mass index [BMI] 21.0-21.9, adult; W19.XXXA Unspecified fall, initial encounter; Y93.89 Activity, other specified; Y92.89 Other specified places as the place of occurrence of the external cause; Y99.8 Other external cause status
CPT/HCPCS: 76001; 83880; 84439; 94150; 97110-GP; 97116-GP; 97530-GP; C1713; J0690; J0696; J1170; J1644; J1750; J1885; J1956; J2060; J2250; J2270; J2405; J2765; J2920; J3010; J3475; J3490; J7030; J7040; J7120; J7620; J7626; J7633; P9016; Q0092; Q0163